=== PATIENT | female | born 1985 | race Caucasian/White ===

== ENCOUNTER 2016-08-22 14:48 | Emergency (ER) | payer BC, OTHER ==
[2016-08-22 14:57] VITALS: BP 112/71
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
== END 2016-08-22 16:20 | disposition home or self-care (01) ==
LOC: ER 14:48
DX: O99.89 Other specified diseases and conditions complicating pregnancy, childbirth and the puerperium (principal); R29.898 Other symptoms and signs involving the musculoskeletal system; V43.52XA Car driver injured in collision with other type car in traffic accident, initial encounter; Y92.413 State road as the place of occurrence of the external cause; Z3A.00 Weeks of gestation of pregnancy not specified
CPT/HCPCS: 99283